=== PATIENT | female | born 1930 | race Caucasian/White ===

== ENCOUNTER 2018-06-25 10:20 | Inpatient (IN) | payer MEDICARE, OTHER ==
[~2018-06-25] VITALS: Ht 165.1 cm; Wt 63.5 kg
[~2018-06-25 10:20] MED LIST: ASPI325 PO; Augmentin 875-1 EACH PO; FURO20 PO; LEVFLO250 PO; LEVSOD88 PO; Lopressor 25 mg25 MG PO; METR500 PO; Micro-K10 MEQ PO; NITR100 PO; OXYACE5T PO; Prilosec Otc20 MG PO; SODCHL1 PO; SPIR50 PO
[2018-06-25] MEDS ORDERED: ASPI81CH PO (10:34)
[2018-06-25 12:39] LABS: BASOPHILS ABSOLUTE AUTO 0.02 K/mm3 (0.00-0.23); BASOPHILS PERCENT AUTO 0 % (0-2); EOSINOPHILS ABSOLUTE AUTO 0.03 K/mm3 (0.00-0.68); EOSINOPHILS PERCENT AUTO 0 % (0-6); Hematocrit 41.2 % (33.0-51.0); Hemoglobin 14.1 g/dL (11.5-16.0); IMMATURE GRAN ABSOLUTE AUTO 0.05 K/mm3 (0.00-0.10); IMMATURE GRAN PERCENT AUTO 1 % (0-1); LYMPHOCYTES ABSOLUTE AUTO 0.82 K/mm3 (0.84-5.20); LYMPHOCYTES PERCENT AUTO 8 % (21-46); MONOCYTES ABSOLUTE AUTO 0.88 K/mm3 (0.16-1.47); MONOCYTES PERCENT AUTO 9 % (4-13); Mean Corpuscular HGB 29.9 pg (26.0-34.0); Mean Corpuscular HGB Conc 34.2 g/dL (31.5-36.5); Mean Corpuscular Volume 87 fL (80-100); NEUTROPHILS ABSOLUTE AUTO 8.57 K/mm3 (1.96-9.15); NEUTROPHILS PERCENT AUTO 83 % (41-73); Platelet Count 234 K/mm3 (150-400); RDW Coefficient Variation 12.6 % (11.7-14.2); RDW Standard Deviation 40.2 fL (35.1-46.3); Red Blood Cell Count 4.72 M/mm3 (3.80-5.20); White Blood Cell Count 10.37 K/mm3 (4.00-11.30)
[2018-06-25 12:53] LABS: Anion Gap 8 mmol/L (6-16); Blood Urea Nitrogen 13 mg/dL (8-24); Bun/Creatinine Ratio 15.5 (12.0-20.0); CO2, Blood 28 mmol/L (21-32); Calcium, Blood 8.9 mg/dL (8.5-10.1); Chloride, Blood 99 mmol/L (98-108); Creatinine, Blood 0.84 mg/dL (0.40-1.00); Glomerular Filtration Rate >60 (60-); Glucose, Blood 125 mg/dL (70-99); Potassium, Blood 4.2 mmol/L (3.5-5.5); Sodium, Blood 135 mmol/L (136-145)
[2018-06-26 04:40] LABS: Hematocrit 42.8 % (33.0-51.0); Hemoglobin 14.6 g/dL (11.5-16.0); Mean Corpuscular HGB 29.9 pg (26.0-34.0); Mean Corpuscular HGB Conc 34.1 g/dL (31.5-36.5); Mean Corpuscular Volume 88 fL (80-100); Mean Platelet Volume 10.6 fL (9.1-12.4); Platelet Count 221 K/mm3 (150-400); RDW Standard Deviation 41.6 fL (35.1-46.3); Red Blood Cell Count 4.89 M/mm3 (3.80-5.20); White Blood Cell Count 10.64 K/mm3 (4.00-11.30)
[2018-06-26 04:56] LABS: Anion Gap 8 mmol/L (6-16); Blood Urea Nitrogen 16 mg/dL (8-24); Bun/Creatinine Ratio 17.9 (12.0-20.0); CO2, Blood 29 mmol/L (21-32); Chloride, Blood 97 mmol/L (98-108); Creatinine, Blood 0.89 mg/dL (0.40-1.00); Glomerular Filtration Rate >60 (60-); Glucose, Blood 103 mg/dL (70-99); Potassium, Blood 4.3 mmol/L (3.5-5.5); Sodium, Blood 134 mmol/L (136-145)
[2018-06-27 05:44] LABS: BASOPHILS ABSOLUTE AUTO 0.04 K/mm3 (0.00-0.23); BASOPHILS PERCENT AUTO 0 % (0-2); EOSINOPHILS ABSOLUTE AUTO 0.11 K/mm3 (0.00-0.68); EOSINOPHILS PERCENT AUTO 1 % (0-6); Hemoglobin 11.7 g/dL (11.5-16.0); IMMATURE GRAN ABSOLUTE AUTO 0.05 K/mm3 (0.00-0.10); IMMATURE GRAN PERCENT AUTO 1 % (0-1); LYMPHOCYTES ABSOLUTE AUTO 0.95 K/mm3 (0.84-5.20); LYMPHOCYTES PERCENT AUTO 9 % (21-46); MONOCYTES ABSOLUTE AUTO 1.07 K/mm3 (0.16-1.47); MONOCYTES PERCENT AUTO 10 % (4-13); Mean Corpuscular HGB 30.2 pg (26.0-34.0); Mean Corpuscular HGB Conc 34.4 g/dL (31.5-36.5); Mean Corpuscular Volume 88 fL (80-100); Mean Platelet Volume 10.4 fL (9.1-12.4); NEUTROPHILS ABSOLUTE AUTO 8.37 K/mm3 (1.96-9.15); NEUTROPHILS PERCENT AUTO 79 % (41-73); Platelet Count 177 K/mm3 (150-400); RDW Coefficient Variation 12.6 % (11.7-14.2); RDW Standard Deviation 40.2 fL (35.1-46.3); Red Blood Cell Count 3.87 M/mm3 (3.80-5.20); White Blood Cell Count 10.59 K/mm3 (4.00-11.30)
[2018-06-27 06:14] LABS: Anion Gap 9 mmol/L (6-16); Blood Urea Nitrogen 15 mg/dL (8-24); Bun/Creatinine Ratio 18.2 (12.0-20.0); CO2, Blood 27 mmol/L (21-32); Calcium, Blood 8.2 mg/dL (8.5-10.1); Chloride, Blood 98 mmol/L (98-108); Creatinine, Blood 0.83 mg/dL (0.40-1.00); Glomerular Filtration Rate >60 (60-); Glucose, Blood 91 mg/dL (70-99); Magnesium, Blood 1.8 mg/dL (1.6-2.4); Sodium, Blood 134 mmol/L (136-145)
[2018-06-28] MEDS ORDERED: AMLO5 PO (11:01)
[2018-06-28] MEDS ORDERED: ASPI325EC PO (11:01)
[2018-06-28] MEDS ORDERED: ROXICODONE5 MG PO (11:02)
[2018-06-28] MEDS ORDERED: Metamucil Smooth1 EA PO (11:03)
== END 2018-06-28 16:47 | disposition home or self-care (01) | DRG 470 ==
LOC: ER 10:20 → SURS 12:42
PROVIDERS: Emergency Medicine; Internal Medicine; Orthopaedic Surgery
PROC: 0SRS0JZ Replacement of Left Hip Joint, Femoral Surface with Synthetic Substitute, Open Approach (ICD-10-PCS; principal; 2018-06-26 15:00)
DX: S72.002A Fracture of unspecified part of neck of left femur, initial encounter for closed fracture (principal); E03.9 Hypothyroidism, unspecified; K21.9 Gastro-esophageal reflux disease without esophagitis; I10 Essential (primary) hypertension; E78.5 Hyperlipidemia, unspecified; M19.90 Unspecified osteoarthritis, unspecified site; R41.89 Other symptoms and signs involving cognitive functions and awareness; W19.XXXA Unspecified fall, initial encounter; Z91.018 Allergy to other foods; Z79.82 Long term (current) use of aspirin; Z79.899 Other long term (current) drug therapy
CPT/HCPCS: 36415; 71045; 72100; 72170; 73502; 73562-LT; 80048; 83735; 85025; 85027; 93005; 93010; 96374; 96375; 96376; 97116; 97162; 97165; 97535; 99284-25; C1776; G8978; G8979; G8987; G8988; J0690; J1170; J1885; J2250; J2405; J3010; J7120

== ENCOUNTER 2018-09-23 11:33 | Observation (INO) | payer MEDICARE, OTHER ==
[~2018-09-23] VITALS: Ht 157.5 cm; Wt 56.9 kg
[~2018-09-23 11:33] MED LIST changes: +AMLO5 PO; +ASPI325EC PO; +ASPI81CH PO; +Metamucil Smooth1 EA PO; +ROXICODONE5 MG PO
[2018-09-23 13:27] LABS: BASOPHILS ABSOLUTE AUTO 0.04 K/mm3 (0.00-0.23); BASOPHILS PERCENT AUTO 0 % (0-2); EOSINOPHILS ABSOLUTE AUTO 0.12 K/mm3 (0.00-0.68); EOSINOPHILS PERCENT AUTO 1 % (0-6); Hematocrit 38.6 % (33.0-51.0); Hemoglobin 12.2 g/dL (11.5-16.0); IMMATURE GRAN ABSOLUTE AUTO 0.07 K/mm3 (0.00-0.10); IMMATURE GRAN PERCENT AUTO 1 % (0-1); LYMPHOCYTES PERCENT AUTO 10 % (21-46); MONOCYTES ABSOLUTE AUTO 1.04 K/mm3 (0.16-1.47); MONOCYTES PERCENT AUTO 8 % (4-13); Mean Corpuscular HGB 27.5 pg (26.0-34.0); Mean Corpuscular HGB Conc 31.6 g/dL (31.5-36.5); Mean Corpuscular Volume 87 fL (80-100); Mean Platelet Volume 10.3 fL (9.1-12.4); NEUTROPHILS ABSOLUTE AUTO 10.03 K/mm3 (1.96-9.15); NEUTROPHILS PERCENT AUTO 80 % (41-73); Platelet Count 438 K/mm3 (150-400); RDW Coefficient Variation 15.3 % (11.7-14.2); RDW Standard Deviation 48.9 fL (35.1-46.3); Red Blood Cell Count 4.44 M/mm3 (3.80-5.20)
[2018-09-23 13:49] LABS: CPK Creatine Kinase 50 U/L (26-193)
[2018-09-23 13:51] LABS: Albumin, Blood 2.9 g/dL (3.4-5.0); Albumin/Globulin Ratio 0.6 (0.8-1.8); Bilirubin, Total 0.5 mg/dL (0.1-1.0); Bun/Creatinine Ratio 29.4 (12.0-20.0); Calcium, Blood 9.9 mg/dL (8.5-10.1); Creatinine, Blood 1.26 mg/dL (0.40-1.00); Globulin, Blood 5.2 g/dL (2.2-4.0); Potassium, Blood 4.6 mmol/L (3.5-5.5); Total Protein, Blood 8.1 g/dL (6.4-8.2)
[2018-09-23 13:55] LABS: Thyroid Stimulating Hormone 7.01 uIU/mL (0.360-4.800)
[2018-09-23 14:33] LABS: Creatine Kinase MB < 1.0 ng/mL (0.0-3.6)
[2018-09-24 08:59] LABS: Bun/Creatinine Ratio 31.4 (12.0-20.0); Calcium, Blood 8.8 mg/dL (8.5-10.1); Creatinine, Blood 1.02 mg/dL (0.40-1.00); Potassium, Blood 3.9 mmol/L (3.5-5.5)
[2018-09-25 04:46] LABS: Hematocrit 29.9 % (33.0-51.0); Hemoglobin 9.7 g/dL (11.5-16.0); Mean Corpuscular HGB 27.6 pg (26.0-34.0); Mean Corpuscular HGB Conc 32.4 g/dL (31.5-36.5); Mean Corpuscular Volume 85 fL (80-100); Mean Platelet Volume 10.5 fL (9.1-12.4); Platelet Count 319 K/mm3 (150-400); RDW Coefficient Variation 15.2 % (11.7-14.2); RDW Standard Deviation 46.6 fL (35.1-46.3); Red Blood Cell Count 3.52 M/mm3 (3.80-5.20)
[2018-09-25 05:06] LABS: Bun/Creatinine Ratio 30.5 (12.0-20.0); Calcium, Blood 8.6 mg/dL (8.5-10.1); Creatinine, Blood 0.98 mg/dL (0.40-1.00); Potassium, Blood 3.7 mmol/L (3.5-5.5)
[2018-09-27 11:44] LABS: Hematocrit 36.8 % (33.0-51.0); Hemoglobin 11.5 g/dL (11.5-16.0)
[2018-09-27 12:22] LABS: Anion Gap 9 mmol/L (6-16); Blood Urea Nitrogen 22 mg/dL (8-24); Bun/Creatinine Ratio 25.6 (12.0-20.0); CO2, Blood 30 mmol/L (21-32); Calcium, Blood 9.6 mg/dL (8.5-10.1); Chloride, Blood 96 mmol/L (98-108); Creatinine, Blood 0.86 mg/dL (0.40-1.00); Glomerular Filtration Rate >60 (60-); Glucose, Blood 124 mg/dL (70-99); Potassium, Blood 3.5 mmol/L (3.5-5.5); Sodium, Blood 135 mmol/L (136-145)
[2018-09-29] MEDS ORDERED: BAYER CHEWABLE81 MG PO (12:37)
[2018-09-29] MEDS ORDERED: Synthroid112 MCG PO (12:44)
[2018-09-29] MEDS ORDERED: XARELTO15 MG PO (12:46)
== END 2018-09-29 14:33 | disposition home or self-care (01) ==
LOC: ER 11:33 → MEDS 11:34 → ENPENDDIS 09-29 11:40 → MEDS 09-29 14:33
PROVIDERS: Emergency Medicine; Internal Medicine
DX: R29.6 Repeated falls (principal); R53.1 Weakness; M79.89 Other specified soft tissue disorders; N17.9 Acute kidney failure, unspecified; E86.0 Dehydration; F44.4 Conversion disorder with motor symptom or deficit; I67.9 Cerebrovascular disease, unspecified; I10 Essential (primary) hypertension; E03.9 Hypothyroidism, unspecified; R62.7 Adult failure to thrive; E78.5 Hyperlipidemia, unspecified; K21.9 Gastro-esophageal reflux disease without esophagitis; I82.402 Acute embolism and thrombosis of unspecified deep veins of left lower extremity; D64.9 Anemia, unspecified; M50.90 Cervical disc disorder, unspecified, unspecified cervical region; M79.605 Pain in left leg; Z79.01 Long term (current) use of anticoagulants; Z79.899 Other long term (current) drug therapy; Z23 Encounter for immunization
CPT/HCPCS: 36415; 70450; 71045; 80048; 80053; 82550; 82553; 84443; 85014; 85018; 85025; 85027; 90686; 93971; 96360; 97110; 97116; 97162; 97530; 99285-25; G8978; G8979; J1650; J7120

== ENCOUNTER 2020-07-21 15:08 | Inpatient (IN) | payer MEDICARE, OTHER ==
[~2020-07-21] VITALS: Ht 154.9 cm; Wt 60.1 kg
[~2020-07-21 15:08] MED LIST changes: +BAYER CHEWABLE81 MG PO; +Synthroid112 MCG PO; +XARELTO15 MG PO
[2020-07-21 15:25] LABS: Calcium, Ionized (POC) 1.03 mmol/L (1.10-1.46); Chloride (POC) 102 mmol/L (98-108); Creatinine (POC) 1.5 mg/dL (0.6-1.0); Glucose (ISTAT POC) 114 mg/dL (70-99); Hemoglobin (POC) 13.3 g/dL (12.0-16.0); Sodium (POC) 135 mmol/L (135-148); Total CO2 (POC) 21 mmol/L (21-32)
[2020-07-21 15:34] LABS: Hemoglobin 13.2 g/dL (11.5-16.0); Mean Corpuscular HGB 28.3 pg (26.0-34.0); Mean Corpuscular HGB Conc 32.2 g/dL (31.5-36.5); Mean Corpuscular Volume 88 fL (80-100); Mean Platelet Volume 11.6 fL (9.1-12.4); NRBC ABSOLUTE 0.02 K/mm3 (0.00-0.02); NRBC Auto 0.1 /100 WBC (0.0-0.2); Platelet Count 286 K/mm3 (150-400); RDW Coefficient Variation 13.8 % (11.7-14.2); RDW Standard Deviation 43.8 fL (35.1-46.3); Red Blood Cell Count 4.66 M/mm3 (3.80-5.20)
[2020-07-21 15:54] LABS: Magnesium, Blood 2.9 mg/dL (1.6-2.4)
[2020-07-21 16:03] LABS: Creatine Kinase MB 2.3 ng/mL (0.0-3.6); Creatine Kinase MB Index 1.3 (0.0-4.0)
[2020-07-21 16:09] LABS: Albumin, Blood 2.5 g/dL (3.4-5.0); Albumin/Globulin Ratio 0.5 (0.8-1.8); Bilirubin, Total 0.7 mg/dL (0.1-1.0); Bun/Creatinine Ratio 57.8 (12.0-20.0); Calcium, Blood 8.5 mg/dL (8.5-10.1); Creatinine, Blood 1.28 mg/dL (0.40-1.00); Globulin, Blood 4.6 g/dL (2.2-4.0); Potassium, Blood 4.1 mmol/L (3.5-5.5); Total Protein, Blood 7.1 g/dL (6.4-8.2); Troponin I 4.75 ng/mL (0.000-0.040)
--- NOTE | 2020-07-21 17:30 | NUR ---
Patient arrived in ICU bed from [facility], received report from Tae BUTTS, with TR Band in place and 13cc air in band. Site C/D/I and signs of bruising or hematoma. Patient alert and oriented and able to communicate her needs. She has IV to LAC infusing NS slow drip rate post procedure, slightly hypotensive systolic 80-90's. Will review orders.
--- NOTE | 2020-07-21 18:40 | NUR ---
Talked with Dr Jones and told her she was hypotensive and she stated to give fluids post procedure that came back with patient. Chest xray showed possible infiltrate and asked if she wanted hospitalist to follow and asked for consult and she stated yes and placed order. Called Dr Bundy and will come by and he did. TR band site C/D/I and still no signs of bleeding or hematoma. Systolic remains in the 90's with MAP. 65. She arrived on RA and remains RA and sats>90%. Karen plan to do ECHO in am and possibly discharge with event monitor.
[2020-07-21 19:05] LABS: Troponin I 4.24 ng/mL (0.000-0.040)
--- NOTE | 2020-07-21 21:30 | NUR ---
PT IS ALERT, AND FRAIL APPEARING. PT IS WITHDRAWN, BUT RESPONDS TO ENCOURAGEMENT. PT MISSED DINNER, AGREED TO EAT FRUIT AND YOGURT, ABLE ONLY TO EAT SMALL AMT, HOWEVER. PT HAD URINARY URGENCY, WAS INCONT, BUT ABLE TO GET TO BSC W MODERATE ASSIST & VOIDED CONCENTRATED URINE. PT HAS TR BAND R RADIAL, SITE IS CLEAR, ARMBOARD IN PLACE. PT CO POSTERIOR NECK DISCOMFORT, SEEMS TO BE POSTURAL RELATED, ASKS FOR ASSIST W PILLOWS.
--- NOTE | 2020-07-22 01:00 | NUR ---
TR BAND SITE IS CLEAR WO BLEEDING OR HEMATOMA, BAND WAS REMOVED AND CLEAR DRSG APPLIED. ARMBOARD IS REPLACED REMINDER. ABLE TO SHIFT SELF IN BED, NEEDS ASSIST W PILLOWS. PT LACTIC ACID WAS ELEVATED, DISCUSSED W RUFUS, WILL GIVE FLUIDS SLOW BOLUS, INFUSING 200CC/HR. SBP 80'S. CALL LIGHT IN REACH.
[2020-07-22 03:37] LABS: BASOPHILS ABSOLUTE AUTO 0.03 K/mm3 (0.00-0.23); BASOPHILS PERCENT AUTO 0 % (0-2); EOSINOPHILS ABSOLUTE AUTO 0.11 K/mm3 (0.00-0.68); EOSINOPHILS PERCENT AUTO 1 % (0-6); Hematocrit 33.7 % (33.0-51.0); Hemoglobin 10.8 g/dL (11.5-16.0); IMMATURE GRAN PERCENT AUTO 2 % (0-1); LYMPHOCYTES PERCENT AUTO 9 % (21-46); MONOCYTES ABSOLUTE AUTO 1.51 K/mm3 (0.16-1.47); MONOCYTES PERCENT AUTO 10 % (4-13); Mean Corpuscular HGB 28.3 pg (26.0-34.0); Mean Corpuscular Volume 89 fL (80-100); Mean Platelet Volume 11.7 fL (9.1-12.4); NEUTROPHILS ABSOLUTE AUTO 12.07 K/mm3 (1.96-9.15); NEUTROPHILS PERCENT AUTO 79 % (41-73); NRBC ABSOLUTE 0.04 K/mm3 (0.00-0.02); NRBC Auto 0.3 /100 WBC (0.0-0.2); Platelet Count 275 K/mm3 (150-400); RDW Coefficient Variation 13.7 % (11.7-14.2); RDW Standard Deviation 44.1 fL (35.1-46.3); Red Blood Cell Count 3.81 M/mm3 (3.80-5.20); White Blood Cell Count 15.32 K/mm3 (4.00-11.30)
[2020-07-22 04:07] LABS: Bun/Creatinine Ratio 62.9 (12.0-20.0); Calcium, Blood 7.7 mg/dL (8.5-10.1); Creatine Kinase MB 2.2 ng/mL (0.0-3.6); Creatine Kinase MB Index 1.3 (0.0-4.0); Creatinine, Blood 1.05 mg/dL (0.40-1.00); Potassium, Blood 3.6 mmol/L (3.5-5.5)
[2020-07-22 04:10] LABS: Troponin I 3.54 ng/mL (0.000-0.040)
--- NOTE | 2020-07-22 05:30 | NUR ---
PT IS VERY FORGETFUL, DOES NOT REMEMBER WHERE SHE IS, COMING TO HOSP, OR WHY SHE IS HERE. UP TO BSC W ASSIST, NO INCONTINENCE. BP IMPROVED, CONT SR W LESS ST DEPRESSION. CONT ON RA, NO COUGH. REORIENTED TO CALL LIGHT.
--- NOTE | 2020-07-22 07:15 | NUR ---
AFTER BEDSIDE INTRODUCTION, PT CALLING OUT- PANIC TONE TO VOICE, "WHERE AM I, DOES MY FAMILY KNOW I'M HERE". REASURRANCE GIVEN, AND PT REORIENTED, CALL LIGHT GIVEN, BUT PT HAS NOT USED TONOC. NO ATTEMPTS TO GET OUT OF BED.
[2020-07-22 09:38] LABS: Troponin I 3.69 ng/mL (0.000-0.040)
--- NOTE | 2020-07-22 11:08 | NUR ---
Echpcardiogram performed and stat reading requested.
--- NOTE | 2020-07-22 12:00 | NUR ---
REASSESSMENT PT RESTING IN BED, VITALS STABLE, PT DENIES ANY CHEST PAIN. RIGHT RADIAL ACCESS SITE IS C/D/I, NO HEMATOMA, ARM BOARD IN PLACE. PT REQUIRES OCCASIONAL REORIENTATION TO WHERE/WHY/TIME. SINUS RHYTHM IN NOTED ON THE MONITOR. NO NEW CHANGES TO ASSESSMENT.
--- NOTE | 2020-07-22 12:58 | NUR ---
PT RETURNED FROM DIALYSIS TO ICU 14. VITALS ARE STABLE, PT CONTINUES TO BE IN SINUS RHYTHM. PER PT, DR KHANNA HAD DISCUSSED POSSIBLE DISCHARGE TODAY WHEN PT WAS AT DIALYSIS. NEW PRESSURE BANDAGE TO RIGHT ARM AT FISTULA SITE, PLACED BY DIALYSIS. NO FURTHER CHANGES NOTED TO ASSESSMENT. PT SET UP WITH LUNCH TRAY AND CALL LIGHT WITHIN REACH.
--- NOTE | 2020-07-22 13:30 | NUR ---
Family contact is fatemehKatja [phone] INITIAL PAL CARE CONSULT PER REQUEST OF JOB COACH/JOB DEVELOPER. T/c received from pt's RN with report of current issues and findings on echocardiogram done this am. RN states both pt and her have significant memory and cognitive deficits and daughter wondered if I could meet with her outside of ICU. I met with fatemeh in conference room for an extended period and had CM join us for assist with d/c planning towards the end of that meeting. Fatemeh and I then returned to pt's room in ICU and presented some options and advanced care planning discussion. 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 Pt and her have been for 70 years and were sweethearts for 5 years prior to wedding. Staying in the same home is a quality of life issue for both of them. They have been in their current home for 41 years. Home care and home management of pt's & 's health issues has been problematic for daughter as patient's has not allowed help in at times. Fatemeh describes explosive anger and severe cognitive issues noted for some time and escalated when her dad became a pt here this winter. Currently, Dorothy was brought to the ER by EMS after daughter called them to assist with pt found on floor. Pt and her were not able to get her off the floor and would not call 911 but did call his daughter. Pt was found to have cardiac issues by EMS and confirmed in the ER. Echo today revealed that pt had a septal wall rupture. Transfer Car Operator researching options for repair per RN and Fatemeh. In reviewing and discussing pt's code status, with pt's , fatemeh and grandson giving their input, pt has decided that she would like to be a DNR instead of full code currently ordered. FAmily had already decided that due to her impaired kidney function, declining appetite and health recently that they do not want any further invasive interventions. Pt defers to her family for medical decision making when asked what she thinks or would like. was very appropriate and when discussing code status wants his wishes for DNR known also and wants to complete a POLST form for himself when we started to complete one for Dorothy. Furthermore, fatemeh and family would like hospice support in place and is agreeable to this currently, as it means he and Dorothy can remain together. We discussed that even with HH/Hospice intermittent visits that additional cg should be considered and hired by family to assist with care.Pt's is currently on [facility] home [facility]. Info re: family request passed on to RN, CM, PAT and . message left for melangeur operator. Spoke with RN and saw PN re: event monitor. Fatemeh and family are not sure they would like an event monitor and feel it would add anxiety to care at home for pt and her . Also, because they do not wish for further intervention other than s/s management at this time they prefer no event monitor. Fatemeh lives in [place] and has been coming up frequently for emergencies and to help 1-2x week and this has been a huge strain for the daughter. We discussed a plan B of pt and relocating to [place] together and living in an assisted living facility if home care does not go well even with visiting staff and hiring daytime help. Family will continue to support either plan as best as they can. Report on my visit called to Dr Baker with VO obtained for DNR and Hospice eval. No comfort care orders re- quested. Dorothy denies experiencing pain, sob, anxiety or distress at this time. She states she has a poor appetite but this is not new for her. I did not observe any nonverbal indicators of pain, anxiety or distress. Report to RN also and called new orders to [facility] and CM. POLST forms completed per family request for pt and her . Cristiana given Goyo Carlos's POLST to have signed by his PCP at [facility]. Dorothy's POLST left on chart for Dr Baker to sign. We will process and get scanned to their medical records once Drs have signed. Fatemeh aware she should have the originals when pt is d/c'd from hospital.
--- NOTE | 2020-07-22 15:51 | NUR ---
REASSESSMENT AFTER ECHO WAS COMPLETED THIS MORNING WITH WAS FOUND THAT PT HAD SEPTAL WALL RUPTURE. DR BOSCH DISCUSSED CARE OPTIONS WITH PT'S DAUGHTER. DUE PT'S AND PT'S FAILING MEMORY, IT WAS REQURESTED BY DAUGHTER FOR ASSITANCE IN DISCHARGE PLANNING AND POSSIBLE HOSPICE. PALLITIVE CARE WAS CONTACTED TO ASSIST IN PT/FAMILY DECISION MAKING. PT WAS TRANSITIONED TO A DNR. PT CONTINUES TO DENY ANY CHEST PAIN, VITALS REMAIN STABLE. SINUS RHYTHM ON THE MONITOR. PT HAS DEMINISHED APPETITE AND REPORTS SHE'S JUST NOT HUNGRY.
--- NOTE | 2020-07-22 17:28 | NUR ---
Per admit trigger, I attempted to meet with Mrs. Gonzalez to offer education on ACP. Spouse was at bedside. Both have dementia. Meaningful conversation was impossible. Both just stared at me blankly. I will remain available.
--- NOTE | 2020-07-22 18:26 | NUR ---
SHIFT SUMMARY PT IS ALERT AND ORIENTED TO PERSON. PT CONFUSED AND NEEDS REORIENTED. THIS EVENING PT HAS BEEN REMOVING HEART MONITOR AND MORE RESTLESS. NO CHEST PAIN REPORTED BY PT TODAY, MONITOR HAS SHOWN PT TO BE IN SINUS RHYTHM. VITALS HAVE BEEN STABLE. PT WAS STATUS CHANGED TO PCU THIS MORNING. FAMILY AND PT DECIDED TO BE CHANGED TO DNR TODAY. ORDERS VERIFIED BY 2ND RN AND PURPLE BAND PLACED ON PT.
--- NOTE | 2020-07-22 20:00 | NUR ---
ASSUMED CARE OF PT AT 1915. REPORT RECEIVED AT BEDSIDE. PT PRESENTS IN BED. ALERT AND SOMEWHAT ORIENTED. FORGETFUL. PLEASANT AND COOPERATIVE WITH CARE AND ASSESSMENT. NO COMPLAINTS OF PAIN. ASSISTED PT IN MAKING A PHONE CALL TO HER . AFTER PHONE CALL, PT WAS ASKING WHERE HER WAS. REORIENTED PT. PT DENIES CHEST PAIN OR PRESSURE. VERY PRONOUNCED HEART MURMUR NOTED. WILL REVIEW CHART AND PLAN OF CARE FOR THIS PT.
--- NOTE | 2020-07-23 00:54 | NUR ---
PT REMAINS PLEASANTLY DISORIENTED. NEEDS TO BE REMINDED THAT SHE IS IN THE HOSPITAL. NO COMPLAINTS OF CHEST PAIN OR PRESSURE. HAS GOTTEN UP TO BEDSIDE COMMODE WITH ASSIST. VOIDS Q.S. VERY WEAK DURING TRANSFER. PT CURRENTLY BACK TO BED.
--- NOTE | 2020-07-23 06:12 | NUR ---
PT HAS MADE SEVERAL ATTEMPTS TO GET OUT OF BED WITHOUT CALLING FIRST. PT'S BED ALARM ACTIVATES APPROPRIATELY. PT DENIES CHEST PAIN OR PRESSURE THROUGHOUT THE NIGHT. PT NEEDS TO BE FREQUENTLY REORIENTED TO WHERE SHE IS, AND WHY SHE IS HERE. PT REMAINS VERY PLEASANT AND COOPERATIVE. WILL CONTINUE TO MONITOR PT, AND WILL REPORT OFF TO ONCOMING RN.
--- NOTE | 2020-07-23 07:23 | NUR ---
ASSUMED PATIENT CARE. PATIENT RESTING COMFORTABLY IN BED, CONVERSING WITH NURSING STAFF. NO SIGNS OF ACUTE DISTRESS, WCTM.
--- NOTE | 2020-07-23 17:05 | NUR ---
NO ACUTE EVENTS THIS SHIFT. PATIENT'S DAUGHTER AND SPOUSE AT BEDSIDE, MEETING WITH HOSPICE OUTPATIENT FOR SET-UP. PATIENT X1 ASSIST WITH WALKER AND GAIT BELT TO COMMODE. PATIENT COMPLAINS OF CONSITPATION THIS SHIFT, DR. SCHULER NOTIFIED AND ORDERS FOR STOOL SOFTENERS GIVEN. PATIENT DENIES PAIN THIS SHIFT. PLAN IS FOR DISCHARGE HOME TOMORROW AT 1800, WILL BE ADMITTED TO HOSPICE MONDAY MORNING.
--- NOTE | 2020-07-23 18:03 | NUR ---
REPORT GIVEN TO SUZIE BUTTS ON MEDICAL.
--- NOTE | 2020-07-24 03:29 | NUR ---
SHIFT SUMMARY: 89 Y/O FEMALE RESTED COMFORTABLY IN BED ALL SHIFT; RIGHT WRIST OPSITE DRESSING DRY AND INTACT; DENIES PAIN OR NAUSEA; HAPPY AND COOPERATIVE; ALERT AND ORIENTED X 2, ABLE TO FOLLOW SIMPLE VERBAL COMMANDS; BED ALARM APPLIED FOR SAFETY, BED LOW POSITION WITH CALL LIGHT AT SIDE.
[2020-07-24] MEDS ORDERED: MIRALAX17 GM PO (14:46)
[2020-07-24] MEDS ORDERED: SENNA LAXATIVE8.6 MG PO (14:47)
[2020-07-24] MEDS ORDERED: ATOR40TA PO (14:53)
[2020-07-24] MEDS ORDERED: LEVFLO500 PO (14:53)
[2020-07-24] MEDS ORDERED: ASPI81CH PO (14:53)
--- NOTE | 2020-07-24 17:47 | NUR ---
shift summary awaiting hospice discharge and gurney transfer. patient's family at home awaiting patient to get home.
--- NOTE | 2020-07-24 18:52 | NUR ---
discharge summary patient off with ambulance crew home on hospice. no acute concerns at time of discharge.
== END 2020-07-24 18:18 | disposition hospice, home (50) | DRG 280 ==
LOC: ER 15:08 → ICUW 15:30 → MEDS 07-23 18:28
PROVIDERS: Emergency Medicine; ADMIT Internal Medicine Interventional Cardiology
PROC: 4A023N7 Measurement of Cardiac Sampling and Pressure, Left Heart, Percutaneous Approach (ICD-10-PCS; principal; 2020-07-21)
PROC: B211YZZ Fluoroscopy of Multiple Coronary Arteries using Other Contrast (ICD-10-PCS; 2020-07-21)
DX: I21.19 ST elevation (STEMI) myocardial infarction involving other coronary artery of inferior wall (principal); J18.9 Pneumonia, unspecified organism; S32.020A Wedge compression fracture of second lumbar vertebra, initial encounter for closed fracture; W19.XXXA Unspecified fall, initial encounter; N18.30 Chronic kidney disease, stage 3 unspecified; I12.9 Hypertensive chronic kidney disease with stage 1 through stage 4 chronic kidney disease, or unspecified chronic kidney disease; F03.90 Unspecified dementia, unspecified severity, without behavioral disturbance, psychotic disturbance, mood disturbance, and anxiety; E78.5 Hyperlipidemia, unspecified; E03.9 Hypothyroidism, unspecified; K21.9 Gastro-esophageal reflux disease without esophagitis; D63.1 Anemia in chronic kidney disease; Z79.82 Long term (current) use of aspirin
CPT/HCPCS: 36415; 71045; 76937; 80047; 80048; 80053; 82550; 82553; 83605; 83735; 84145; 84484; 85014; 85025; 85027; 85347; 86850; 86900; 86901; 87040; 93005; 93010; 93306; 93458; 96374-59; 97110; 97162; 97165; 97530; 99152; 99285-25; A9270; A9270-GY; C1769; C1887; C1894; G0008; J0461; J1644; J1956; J2250; J3010; J7030; J7040; J7050; Q2038; Q9967